=== PATIENT | male | born 1940 | race Caucasian/White ===

== ENCOUNTER 2017-09-12 10:27 | Emergency (ER) | payer MEDICARE, OTHER ==
[~2017-09-12] VITALS: Ht 185.4 cm; Wt 109.0 kg
[~2017-09-12 10:27] MED LIST: ASPI81TA96 PO; FLO0.4C PO; LISI40TA4 PO; LOPE-144 PO; METF-436 PO; ROSU5TAB PO; VITAMIN D3 PO
[2017-09-12 10:43] VITALS: BP 157/61
== END 2017-09-12 12:30 | disposition home or self-care (01) ==
LOC: ER 10:28
DX: S22.32XA Fracture of one rib, left side, initial encounter for closed fracture (principal); S13.9XXA Sprain of joints and ligaments of unspecified parts of neck, initial encounter; E11.9 Type 2 diabetes mellitus without complications; Z90.49 Acquired absence of other specified parts of digestive tract; Z95.0 Presence of cardiac pacemaker; Z79.82 Long term (current) use of aspirin; Z79.84 Long term (current) use of oral hypoglycemic drugs; Z79.899 Other long term (current) drug therapy; V89.2XXA Person injured in unspecified motor-vehicle accident, traffic, initial encounter; Y93.89 Activity, other specified; Y92.89 Other specified places as the place of occurrence of the external cause; Y99.8 Other external cause status
CPT/HCPCS: 71045; 99284

== ENCOUNTER 2017-12-11 09:05 | Day surgery (SDC) | payer MEDICARE ==
[2017-12-11] VITALS (8 sets, daily range): BP systolic 101–161; BP diastolic 55–100
[~2017-12-11] VITALS: Ht 182.9 cm; Wt 113.6 kg
[2017-12-11] MEDS ORDERED: diphenhydrAMINE 25mg capsule PO PRN (09:40)
[2017-12-11] MEDS ORDERED: sod bicarbonate 150mEq in D5W 1,150 ML IV ONE (09:40)
[2017-12-11] MEDS ORDERED: DET2T PO (09:44)
[2017-12-11 10:51] LABS: BASOPHILS # (AUTO) 0.1 X10'3 (0-0.2); BASOPHILS % (AUTO) 1.1 % (0-1); EOSINOPHILS # (AUTO) 0.3 X10'3 (0-0.9); EOSINOPHILS % (AUTO) 2.7 % (0-6); HEMATOCRIT 56.8 % (42.0-52.0); LYMPHOCYTES # (AUTO) 2.3 X10'3 (1.1-4.8); LYMPHOCYTES % (AUTO) 20.9 % (21-51); MEAN CORPUSCULAR HEMOGLOBIN 30.6 PG (27.0-31.0); MEAN CORPUSCULAR HGB CONC 32.5 % (33.0-36.5); MEAN CORPUSCULAR VOLUME 94.2 FL (78-98); MEAN PLATELET VOLUME 12.2 FL (7.4-10.4); MONOCYTES # (AUTO) 0.8 X10'3 (0-0.9); MONOCYTES % (AUTO) 7.6 % (2-12); NEUTROPHILS # (AUTO) 7.6 X10'3 (1.8-7.7); NEUTROPHILS % (AUTO) 67.7 % (42-75); PLATELET COUNT 141 X10'3 (140-440); RED BLOOD COUNT 6.03 X10'6 (4.70-6.10); RED CELL DISTRIBUTION WIDTH 16.4 % (11.5-14.5); WHITE BLOOD COUNT 11.2 X10'3 (4.5-11.0)
[2017-12-11 10:56] LABS: HEMOGLOBIN 18.5 g/dl (14.0-17.9)
[2017-12-11 11:00] LABS: ALBUMIN 3.8 G/DL (3.4-5.0); ANION GAP 10 (8-16); BLOOD UREA NITROGEN 21 MG/DL (7-18); BUN/CREATININE RATIO 19.3 (5.4-32.0); CALCIUM 9.2 MG/DL (8.5-10.1); CHLORIDE 107 MMOL/L (99-107); CREATININE 1.09 MG/DL (0.60-1.10); GLUCOSE 116 MG/DL (70-104); MAGNESIUM 2.1 MG/DL (1.5-2.4); POTASSIUM 4.5 MMOL/L (3.5-5.1); SODIUM 145 MMOL/L (135-145); TOTAL CARBON DIOXIDE 27.7 MMOL/L (24-32); eGFR 66 ML/MIN
[2017-12-11] MEDS ORDERED: iohexol 350 MG/ML 50ML vial IV ONE ×3 (11:15→13:19)
[2017-12-11] MEDS ORDERED: fentaNYL/PF 50MCG/1 ML 2ML syringe ONE (11:15)
[2017-12-11] MEDS ORDERED: midazolam 2 mg/2 ml injection ONE (11:15)
[2017-12-11] MEDS ORDERED: iohexol 350MG/ML 100ml bottle IV ONE ×4 (11:16→13:19)
[2017-12-11] MEDS ORDERED: LIDOcaine 1% (10mg/ml)w/preservative injection 20ml MDV ONE (11:17)
[2017-12-11] MEDS ORDERED: heparin 1,000 UNITS/NS 500ml 500 ML ONE (11:48)
[2017-12-11] MEDS ORDERED: heparin 1,000unit/ml 10ml vial 10 ML ONE ×2 (12:33→13:14)
[2017-12-11] MEDS ORDERED: hydrALAZINE 20mg/ml inj. IV ONE ×2 (13:07→13:40)
[2017-12-11] MEDS ORDERED: clopidogrel 300mg tablet ONE (13:46)
[2017-12-11] MEDS ORDERED: normal saline 1000ml 1,000 ML IV SCH (15:10)
[2017-12-11] MEDS ORDERED: ketorolac tromethamine 15mg/ml inj. IV ONE (15:25)
== END 2017-12-11 17:35 | disposition home or self-care (01) ==
LOC: SSTAY O 09:05
PROVIDERS: ATTEND Internal Medicine Cardiovascular Disease
DX: I25.810 Atherosclerosis of coronary artery bypass graft(s) without angina pectoris (principal); I70.213 Atherosclerosis of native arteries of extremities with intermittent claudication, bilateral legs; I25.2 Old myocardial infarction; I74.5 Embolism and thrombosis of iliac artery; I77.1 Stricture of artery; E11.9 Type 2 diabetes mellitus without complications; E78.5 Hyperlipidemia, unspecified; I10 Essential (primary) hypertension; F17.210 Nicotine dependence, cigarettes, uncomplicated; J43.9 Emphysema, unspecified; Z86.74 Personal history of sudden cardiac arrest; Z88.0 Allergy status to penicillin; Z72.89 Other problems related to lifestyle; Z85.46 Personal history of malignant neoplasm of prostate; Z92.21 Personal history of antineoplastic chemotherapy; Z95.0 Presence of cardiac pacemaker; Z95.1 Presence of aortocoronary bypass graft; Z95.5 Presence of coronary angioplasty implant and graft; Z79.82 Long term (current) use of aspirin; Z90.49 Acquired absence of other specified parts of digestive tract; Z79.899 Other long term (current) drug therapy; Z98.890 Other specified postprocedural states; Z82.49 Family history of ischemic heart disease and other diseases of the circulatory system; Z84.1 Family history of disorders of kidney and ureter
CPT/HCPCS: 36140; 36415; 37221; 37223; 75625; 75716; 80048; 82948; 83735; 85025; 85610; 93005; 93459; 99152; 99153; A6257; C1725; C1760; C1769; C1874; C1876; C1894; C9604; C9605; J0360; J1644; J1885; J2001; J2250; J3010; J7030; Q0163; Q9967; A4620

== ENCOUNTER 2018-01-01 07:43 | Day surgery (SDC) | payer MEDICARE ==
[2018-01-01] VITALS (8 sets, daily range): BP systolic 121–157; BP diastolic 53–79
[~2018-01-01] VITALS: Ht 182.9 cm; Wt 113.7 kg
[~2018-01-01 07:43] MED LIST changes: +DET2T PO; -FLO0.4C PO; -LOPE-144 PO; -METF-436 PO; -VITAMIN D3 PO
[2018-01-01] MEDS ORDERED: iohexol 350 MG/ML 50ML vial IV ONE (08:34)
[2018-01-01] MEDS ORDERED: midazolam 2 mg/2 ml injection ONE ×2 (08:34→09:55)
[2018-01-01] MEDS ORDERED: fentaNYL/PF 50MCG/1 ML 2ML syringe ONE (08:34)
[2018-01-01] MEDS ORDERED: LIDOcaine 1% (10mg/ml)w/preservative injection 20ml MDV ONE (08:34)
[2018-01-01] MEDS ORDERED: iohexol 350MG/ML 100ml bottle IV ONE ×2 (08:34→10:55)
[2018-01-01] MEDS ORDERED: heparin 1,000unit/ml 10ml vial 10 ML ONE (08:34)
[2018-01-01] MEDS ORDERED: sod bicarbonate 150mEq in D5W 1,150 ML IV ONE (08:35)
[2018-01-01] MEDS ORDERED: diphenhydrAMINE 25mg capsule PO PRN (08:35)
[2018-01-01] MEDS ORDERED: normal saline 1000ml 1,000 ML IV SCH (08:35)
[2018-01-01] MEDS ORDERED: CLOP75TA33 PO (08:38)
[2018-01-01] MEDS ORDERED: CARV-50 PO (08:38)
[2018-01-01 09:05] LABS: BASOPHILS # (AUTO) 0.1 X10'3 (0-0.2); BASOPHILS % (AUTO) 0.4 % (0-1); EOSINOPHILS # (AUTO) 0.3 X10'3 (0-0.9); EOSINOPHILS % (AUTO) 2.6 % (0-6); LYMPHOCYTES # (AUTO) 2.3 X10'3 (1.1-4.8); LYMPHOCYTES % (AUTO) 17.8 % (21-51); MEAN CORPUSCULAR HEMOGLOBIN 30.6 PG (27.0-31.0); MEAN CORPUSCULAR HGB CONC 32.3 % (33.0-36.5); MEAN CORPUSCULAR VOLUME 94.8 FL (78-98); MEAN PLATELET VOLUME 10.9 FL (7.4-10.4); MONOCYTES # (AUTO) 0.9 X10'3 (0-0.9); MONOCYTES % (AUTO) 7.3 % (2-12); NEUTROPHILS # (AUTO) 9.2 X10'3 (1.8-7.7); NEUTROPHILS % (AUTO) 71.9 % (42-75); PRE OP HEMOGLOBIN 17.4 g/dL (14.0-17.9); PRE OP PLATELET COUNT 168 X10'3 (140-440)
[2018-01-01 09:10] LABS: ALBUMIN 4.1 G/DL (3.4-5.0); ANION GAP 6 (8-16); BLOOD UREA NITROGEN 22 MG/DL (7-18); BUN/CREATININE RATIO 14.7 (5.4-32.0); CALCIUM 9.2 MG/DL (8.5-10.1); CHLORIDE 107 MMOL/L (99-107); GLUCOSE 120 MG/DL (70-104); POTASSIUM 4.6 MMOL/L (3.5-5.1); SODIUM 145 MMOL/L (135-145); TOTAL CARBON DIOXIDE 31.8 MMOL/L (24-32); eGFR 45 ML/MIN
[2018-01-01 09:21] LABS: INR 0.9 INR; PROTHROMBIN TIME 9.6 SECONDS (9.0-12.0)
[2018-01-01] MEDS ORDERED: nitroGLYCERIN-Tridil 50MG/D5W 250 ML IV ONE (10:36)
[2018-01-01] MEDS ORDERED: hydrALAZINE 20mg/ml inj. IV ONE (11:22)
== END 2018-01-01 15:05 | disposition home or self-care (01) ==
LOC: SSTAY O 07:43
PROVIDERS: ATTEND Internal Medicine Cardiovascular Disease
DX: I70.212 Atherosclerosis of native arteries of extremities with intermittent claudication, left leg (principal); I74.5 Embolism and thrombosis of iliac artery; I25.118 Atherosclerotic heart disease of native coronary artery with other forms of angina pectoris; I25.5 Ischemic cardiomyopathy; I47.2 Ventricular tachycardia; I44.2 Atrioventricular block, complete; I10 Essential (primary) hypertension; E78.5 Hyperlipidemia, unspecified; E11.9 Type 2 diabetes mellitus without complications; G47.33 Obstructive sleep apnea (adult) (pediatric); F17.210 Nicotine dependence, cigarettes, uncomplicated; J43.9 Emphysema, unspecified; Z95.810 Presence of automatic (implantable) cardiac defibrillator; Z95.1 Presence of aortocoronary bypass graft; Z88.0 Allergy status to penicillin; Z79.82 Long term (current) use of aspirin; Z95.828 Presence of other vascular implants and grafts; Z90.49 Acquired absence of other specified parts of digestive tract; Z85.46 Personal history of malignant neoplasm of prostate; Z92.3 Personal history of irradiation; Z86.74 Personal history of sudden cardiac arrest; Z95.5 Presence of coronary angioplasty implant and graft; Z87.09 Personal history of other diseases of the respiratory system; Z72.89 Other problems related to lifestyle; Z79.4 Long term (current) use of insulin; Z98.890 Other specified postprocedural states; Z79.899 Other long term (current) drug therapy; Z82.49 Family history of ischemic heart disease and other diseases of the circulatory system; Z84.1 Family history of disorders of kidney and ureter
CPT/HCPCS: 36415; 37224; 80048; 82948; 83735; 85025; 85610; 93005; 99152; 99153; J0360; J1644; J2001; J2250; J3010; J7030; Q0163; Q9967; 75630; A4620; C1760; C1769; C1894; J3490

== ENCOUNTER 2018-01-15 08:54 | Day surgery (SDC) | payer MEDICARE ==
[~2018-01-15] VITALS: Ht 195.6 cm; Wt 113.9 kg
[2018-01-15] VITALS (9 sets, daily range): BP systolic 94–157; BP diastolic 52–85
[~2018-01-15 08:54] MED LIST changes: +CARV-50 PO; +CLOP75TA33 PO
[2018-01-15] MEDS ORDERED: sod bicarbonate 150mEq in D5W 1,150 ML IV ONE (09:30)
[2018-01-15] MEDS ORDERED: diphenhydrAMINE 25mg capsule PO PRN (09:30)
[2018-01-15 09:57] LABS: BASOPHILS % (AUTO) 0.1 % (0-1); EOSINOPHILS # (AUTO) 0.3 X10'3 (0-0.9); EOSINOPHILS % (AUTO) 3.1 % (0-6); LYMPHOCYTES # (AUTO) 2.1 X10'3 (1.1-4.8); MEAN CORPUSCULAR HEMOGLOBIN 30.9 PG (27.0-31.0); MEAN CORPUSCULAR HGB CONC 32.7 % (33.0-36.5); MEAN CORPUSCULAR VOLUME 94.4 FL (78-98); MEAN PLATELET VOLUME 10.8 FL (7.4-10.4); MONOCYTES # (AUTO) 0.4 X10'3 (0-0.9); MONOCYTES % (AUTO) 3.8 % (2-12); NEUTROPHILS # (AUTO) 8.4 X10'3 (1.8-7.7); PRE OP HEMATOCRIT 47.1 % (42.0-52.0); PRE OP HEMOGLOBIN 15.4 g/dL (14.0-17.9); PRE OP PLATELET COUNT 143 X10'3 (140-440); RED BLOOD COUNT 4.99 X10'6 (4.70-6.10); RED CELL DISTRIBUTION WIDTH 15.2 % (11.5-14.5)
[2018-01-15 10:07] LABS: PROTHROMBIN TIME 10.4 SECONDS (9.0-12.0)
[2018-01-15 10:10] LABS: ALBUMIN 3.2 G/DL (3.4-5.0); ANION GAP 5 (8-16); BLOOD UREA NITROGEN 17 MG/DL (7-18); CALCIUM 8.5 MG/DL (8.5-10.1); CHLORIDE 108 MMOL/L (99-107); GLUCOSE 120 MG/DL (70-104); POTASSIUM 4.4 MMOL/L (3.5-5.1); SODIUM 142 MMOL/L (135-145); TOTAL CARBON DIOXIDE 28.7 MMOL/L (24-32); eGFR 72 ML/MIN
[2018-01-15] MEDS ORDERED: LIDOcaine 1% (10mg/ml)w/preservative injection 20ml MDV ONE (11:26)
[2018-01-15] MEDS ORDERED: fentaNYL/PF 50MCG/1 ML 2ML syringe ONE (11:26)
[2018-01-15] MEDS ORDERED: heparin 1,000unit/ml 10ml vial 0 ML ONE (11:26)
[2018-01-15] MEDS ORDERED: iohexol 350MG/ML 100ml bottle IV ONE ×2 (11:26→12:35)
[2018-01-15] MEDS ORDERED: midazolam 2 mg/2 ml injection ONE (11:26)
[2018-01-15] MEDS ORDERED: nitroGLYCERIN-Tridil 50MG/D5W 0 ML IV ONE (12:28)
[2018-01-15] MEDS ORDERED: verapamil 2.5 mg/ml inj IV ONE (12:28)
[2018-01-15] MEDS ORDERED: HYDROcodone/acetaminophen 10/325mg tab PO ONE (16:05)
[2018-01-15] MEDS ORDERED: HYDROcodone/acetaminophen 10/325mg tab PO PRN (16:15)
[2018-01-15] MEDS ORDERED: HYDROcodone/acetaminophen 5mg/325mg tablet PO PRN (16:15)
== END 2018-01-15 18:00 | disposition home or self-care (01) ==
LOC: SSTAY O 08:54
PROVIDERS: ATTEND Internal Medicine Cardiovascular Disease
DX: I70.213 Atherosclerosis of native arteries of extremities with intermittent claudication, bilateral legs (principal); I44.7 Left bundle-branch block, unspecified; I25.810 Atherosclerosis of coronary artery bypass graft(s) without angina pectoris; I25.2 Old myocardial infarction; I10 Essential (primary) hypertension; E78.5 Hyperlipidemia, unspecified; E11.9 Type 2 diabetes mellitus without complications; I25.5 Ischemic cardiomyopathy; I47.2 Ventricular tachycardia; I44.2 Atrioventricular block, complete; J44.9 Chronic obstructive pulmonary disease, unspecified; F17.210 Nicotine dependence, cigarettes, uncomplicated; N40.0 Benign prostatic hyperplasia without lower urinary tract symptoms; G47.33 Obstructive sleep apnea (adult) (pediatric); Z86.74 Personal history of sudden cardiac arrest; Z85.46 Personal history of malignant neoplasm of prostate; Z92.3 Personal history of irradiation; Z95.5 Presence of coronary angioplasty implant and graft; Z79.4 Long term (current) use of insulin; Z88.0 Allergy status to penicillin; Z95.810 Presence of automatic (implantable) cardiac defibrillator; Z79.82 Long term (current) use of aspirin; Z95.1 Presence of aortocoronary bypass graft; Z90.49 Acquired absence of other specified parts of digestive tract; Z79.899 Other long term (current) drug therapy; Z98.890 Other specified postprocedural states; Z82.49 Family history of ischemic heart disease and other diseases of the circulatory system; Z84.1 Family history of disorders of kidney and ureter
CPT/HCPCS: 36245; 36415; 80048; 83735; 85025; 85610; 93005; 99152; 99153; C1760; J1644; J2001; J2250; J3010; Q0163; Q9967; 36140; A4620; C1725; C1769; C1894; J3490

== ENCOUNTER 2018-09-30 07:25 | Emergency (ER) | payer MEDICARE ==
[~2018-09-30] VITALS: Ht 185.4 cm; Wt 122.0 kg
[2018-09-30 09:44] VITALS: BP 179/85
[2018-09-30] MEDS ORDERED: TRAM50TA2 PO (10:04)
== END 2018-09-30 10:18 | disposition home or self-care (01) ==
LOC: ER 07:27
DX: S50.01XA Contusion of right elbow, initial encounter (principal); R07.81 Pleurodynia; R60.0 Localized edema; E11.9 Type 2 diabetes mellitus without complications; Z88.0 Allergy status to penicillin; Z79.82 Long term (current) use of aspirin; Z79.899 Other long term (current) drug therapy; Z90.49 Acquired absence of other specified parts of digestive tract; Z95.0 Presence of cardiac pacemaker; Z95.9 Presence of cardiac and vascular implant and graft, unspecified; W10.8XXA Fall (on) (from) other stairs and steps, initial encounter; Y93.89 Activity, other specified; Y92.89 Other specified places as the place of occurrence of the external cause; Y99.8 Other external cause status
CPT/HCPCS: 71045; 71100; 73080; 99284

== ENCOUNTER 2019-07-11 08:12 | Outpatient (CLI) | payer MEDICARE | END 2019-07-11 23:59 | disposition home or self-care (01) | LOC: VAS 08:12 | PROVIDERS: ATTEND Surgery | DX: I70.201 Unspecified atherosclerosis of native arteries of extremities, right leg (principal) | CPT/HCPCS: 93922; 93926; 93971 ==

== ENCOUNTER 2019-07-15 09:30 | Outpatient (CLI) | payer MEDICARE | END 2019-07-15 10:46 | disposition home or self-care (01) | LOC: WOUND CARE 09:30 → EDSTATUS 09:40 → WOUND CARE 10:46 | PROVIDERS: ATTEND Nurse Practitioner | DX: I70.235 Atherosclerosis of native arteries of right leg with ulceration of other part of foot (principal); L97.811 Non-pressure chronic ulcer of other part of right lower leg limited to breakdown of skin; S91.101A Unspecified open wound of right great toe without damage to nail, initial encounter; I10 Essential (primary) hypertension; E78.5 Hyperlipidemia, unspecified; I25.10 Atherosclerotic heart disease of native coronary artery without angina pectoris; F17.200 Nicotine dependence, unspecified, uncomplicated; Z95.1 Presence of aortocoronary bypass graft; X58.XXXA Exposure to other specified factors, initial encounter; Y93.89 Activity, other specified; Y92.89 Other specified places as the place of occurrence of the external cause; Y99.8 Other external cause status | CPT/HCPCS: G0463 ==

== ENCOUNTER 2019-07-22 08:42 | Day surgery (SDC) | payer MEDICARE ==
[2019-07-22] MEDS ORDERED: LIDOcaine 2% 5ml jelly ONE ×2 (09:00)
== END 2019-07-22 09:38 | disposition home or self-care (01) ==
LOC: WOUND CARE 08:42
PROVIDERS: ATTEND Nurse Practitioner
DX: I70.235 Atherosclerosis of native arteries of right leg with ulceration of other part of foot (principal); L97.811 Non-pressure chronic ulcer of other part of right lower leg limited to breakdown of skin; S91.101D Unspecified open wound of right great toe without damage to nail, subsequent encounter; I10 Essential (primary) hypertension; E78.5 Hyperlipidemia, unspecified; I25.10 Atherosclerotic heart disease of native coronary artery without angina pectoris; F17.200 Nicotine dependence, unspecified, uncomplicated; Z95.1 Presence of aortocoronary bypass graft; X58.XXXD Exposure to other specified factors, subsequent encounter
CPT/HCPCS: 82948; 97597

== ENCOUNTER 2019-07-24 08:06 | Outpatient (CLI) | payer MEDICARE ==
[2019-07-24] MEDS ORDERED: iohexol 350MG/ML 100ml bottle IV ONE (09:02)
[2019-07-24] MEDS ORDERED: iohexol 350 MG/ML 50ML vial IV ONE (09:03)
[2019-07-24 09:08] LABS: BASOPHILS # (AUTO) 0.1 X10'3 (0-0.2); BASOPHILS % (AUTO) 0.9 % (0-1); EOSINOPHILS # (AUTO) 0.1 X10'3 (0-0.9); EOSINOPHILS % (AUTO) 0.6 % (0-6); HEMATOCRIT 54.2 % (42.0-52.0); HEMOGLOBIN 17.6 g/dl (14.0-17.9); LYMPHOCYTES # (AUTO) 1.3 X10'3 (1.1-4.8); LYMPHOCYTES % (AUTO) 10.9 % (21-51); MEAN CORPUSCULAR HEMOGLOBIN 30.8 PG (27.0-31.0); MEAN CORPUSCULAR HGB CONC 32.5 g/dL (33.0-36.5); MEAN CORPUSCULAR VOLUME 94.7 FL (78-98); MONOCYTES # (AUTO) 0.9 X10'3 (0-0.9); MONOCYTES % (AUTO) 6.9 % (2-12); NEUTROPHILS % (AUTO) 80.7 % (42-75); PLATELET COUNT 100 X10'3 (140-440); RED BLOOD COUNT 5.72 X10'6 (4.70-6.10); RED CELL DISTRIBUTION WIDTH 16.3 % (11.5-14.5); WHITE BLOOD COUNT 12.3 X10'3 (4.5-11.0)
[2019-07-24 09:23] LABS: ALANINE AMINOTRANSFERASE 16 U/L (12-78); ALBUMIN 3.2 G/DL (3.4-5.0); ALBUMIN/GLOBULIN RATIO 0.9 (1.1-1.5); ALKALINE PHOSPHATASE 72 IU/L (46-116); ANION GAP 2 (8-16); ASPARTATE AMINO TRANSFERASE 18 U/L (10-37); BILIRUBIN,TOTAL 0.8 MG/DL (0.1-1.0); BLOOD UREA NITROGEN 13 MG/DL (7-18); BUN/CREATININE RATIO 12.7 (5.4-32.0); CALCIUM 8.9 MG/DL (8.5-10.1); CHLORIDE 108 MMOL/L (99-107); CREATININE 1.02 MG/DL (0.60-1.10); GLUCOSE 125 MG/DL (70-104); POTASSIUM 4.5 MMOL/L (3.5-5.1); SODIUM 145 MMOL/L (135-145); TOTAL CARBON DIOXIDE 35.1 MMOL/L (24-32); TOTAL PROTEIN 6.8 G/DL (6.4-8.2); eGFR 70 ML/MIN
[2019-07-24 09:26] LABS: LARGE PLATELETS FEW; PLATELET ESTIMATE DECREASED
[2019-07-24 09:30] LABS: HEMOGLOBIN A1C 6.3 % (4.5-6.2)
== END 2019-07-24 23:59 | disposition home or self-care (01) ==
LOC: 64 CT 08:06
PROVIDERS: ATTEND Nurse Practitioner
DX: Z01.812 Encounter for preprocedural laboratory examination (principal); I74.3 Embolism and thrombosis of arteries of the lower extremities; I48.91 Unspecified atrial fibrillation; Z79.01 Long term (current) use of anticoagulants; F17.210 Nicotine dependence, cigarettes, uncomplicated; Z95.0 Presence of cardiac pacemaker; I25.10 Atherosclerotic heart disease of native coronary artery without angina pectoris; I70.8 Atherosclerosis of other arteries; E78.5 Hyperlipidemia, unspecified; E11.51 Type 2 diabetes mellitus with diabetic peripheral angiopathy without gangrene
CPT/HCPCS: 36415; 80053; 83036; 85025; Q9967

== ENCOUNTER 2019-07-26 16:23 | Inpatient (IN) | payer MEDICARE ==
[~2019-07-26] VITALS: Ht 185.4 cm; Wt 115.0 kg
[~2019-07-26 16:23] MED LIST changes: -AMIO200T61 PO; -ASCO500C15 PO; -ASPI-1130 PO; -CARV6.253 PO; -FURO40TA4 PO; -LISI2.5T2 PO; -MULT-1085 PO; -ROSU40TA22 PO; -ZOLP5TAB8 PO; -iohexol 350 MG/ML 50ML vial IV ONE; -iohexol 350MG/ML 100ml bottle IV ONE
[2019-07-26] MEDS ORDERED: heparin 25,000 UNIT/250ml bag 250 ML IV SCH ×2 (17:59→19:06)
[2019-07-26] MEDS ORDERED: heparin 10,000 units/1 ML INJ IV ONE ×4 (18:00→20:30)
[2019-07-26 18:04] LABS: BASOPHILS # (AUTO) 0.2 X10'3 (0-0.2); BASOPHILS % (AUTO) 1.9 % (0-1); EOSINOPHILS # (AUTO) 0.1 X10'3 (0-0.9); EOSINOPHILS % (AUTO) 1.2 % (0-6); HEMATOCRIT 53.7 % (42.0-52.0); HEMOGLOBIN 17.3 g/dl (14.0-17.9); LYMPHOCYTES # (AUTO) 1.6 X10'3 (1.1-4.8); LYMPHOCYTES % (AUTO) 13.6 % (21-51); MEAN CORPUSCULAR HEMOGLOBIN 30.9 PG (27.0-31.0); MEAN CORPUSCULAR HGB CONC 32.3 g/dL (33.0-36.5); MEAN CORPUSCULAR VOLUME 95.6 FL (78-98); MEAN PLATELET VOLUME 10.9 FL (7.4-10.4); MONOCYTES # (AUTO) 1.3 X10'3 (0-0.9); MONOCYTES % (AUTO) 10.8 % (2-12); NEUTROPHILS # (AUTO) 8.6 X10'3 (1.8-7.7); NEUTROPHILS % (AUTO) 72.5 % (42-75); PLATELET COUNT 115 X10'3 (140-440); RED BLOOD COUNT 5.61 X10'6 (4.70-6.10); WHITE BLOOD COUNT 11.8 X10'3 (4.5-11.0)
[2019-07-26 18:14] LABS: PARTIAL THROMBOPLASTIN TIME 30 SECONDS (22-32)
[2019-07-26 18:15] LABS: ALANINE AMINOTRANSFERASE 23 U/L (12-78); ALBUMIN 3.2 G/DL (3.4-5.0); ANION GAP 2 (8-16); ASPARTATE AMINO TRANSFERASE 18 U/L (10-37); BILIRUBIN,TOTAL 0.4 MG/DL (0.1-1.0); BLOOD UREA NITROGEN 15 MG/DL (7-18); BUN/CREATININE RATIO 13.6 (5.4-32.0); CALCIUM 8.9 MG/DL (8.5-10.1); CHLORIDE 108 MMOL/L (99-107); GLUCOSE 105 MG/DL (70-104); POTASSIUM 4.3 MMOL/L (3.5-5.1); SODIUM 145 MMOL/L (135-145); TOTAL CARBON DIOXIDE 34.9 MMOL/L (24-32); TOTAL PROTEIN 6.4 G/DL (6.4-8.2); eGFR 65 ML/MIN
[2019-07-26 18:25] LABS: ALKALINE PHOSPHATASE 77 IU/L (46-116)
[2019-07-26 18:36] LABS: LARGE PLATELETS FEW; PLATELET ESTIMATE DECREASED
--- NOTE | 2019-07-26 18:39 | NUR ---
attempting insertion of IV x 2.
[2019-07-26] MEDS ORDERED: AMIO200T61 PO (18:48)
[2019-07-26] MEDS ORDERED: FURO40TA4 PO (18:48)
[2019-07-26] MEDS ORDERED: CARV6.253 PO (18:48)
[2019-07-26] MEDS ORDERED: ZOLP5TAB8 PO (18:48)
[2019-07-26] MEDS ORDERED: LISI2.5T2 PO (18:48)
[2019-07-26] MEDS ORDERED: ROSU40TA22 PO (18:48)
[2019-07-26] MEDS ORDERED: heparin 10,000 units/1 ML INJ IV PRN (19:10)
--- NOTE | 2019-07-26 19:21 | NUR ---
22G iv INSERTED INTO RIGHT FOREARM. HEPARIN GTT STARTED AT 1925.
[2019-07-26] MEDS ORDERED: ASPI-1130 PO (19:38)
[2019-07-26] MEDS ORDERED: ASCO500C15 PO (19:38)
[2019-07-26] MEDS ORDERED: MULT-1085 PO (19:38)
[2019-07-26] MEDS ORDERED: zolpidem 5mg tablet PO PRN (20:25)
[2019-07-26] MEDS ORDERED: potassium Cl 20 mEq SR tablet PO PRN ×2 (20:30)
[2019-07-26] MEDS ORDERED: ipratropium/albuterol 3ml nebule NEB PRN (20:30)
[2019-07-26] MEDS ORDERED: ondansetron/PF 4mg/2ml inj IV PRN (20:30)
[2019-07-26] MEDS ORDERED: dextrose 50%-water 50ml dispensing syringe IV PRN ×2 (20:30)
[2019-07-26] MEDS ORDERED: glucagon, human recombinant 1mg kit SUBCUT PRN (20:30)
[2019-07-26] MEDS ORDERED: acetaminophen 325mg tablet PO PRN (20:30)
[2019-07-26] MEDS ORDERED: potassium CL 10mEq/100ml bag 100 ML IV PRN ×2 (20:30)
[2019-07-26] MEDS ORDERED: insulin Lispro (HumaLOG) vial - multi-dose SQ SCH (20:30)
[2019-07-26] MEDS ORDERED: dextrose ORAL solution 15 GM/59 ML bottle PO PRN ×2 (20:30)
[2019-07-26] MEDS ORDERED: mag hydrox/Alum hydrox/simeth 30ml oral suspension PO PRN (20:30)
[2019-07-26] MEDS ORDERED: MESSAGE TO PHARMACY PO ONE (20:30)
[2019-07-26] MEDS ORDERED: magnesium hydroxide 30ml (MOM) UD suspension PO PRN (20:30)
[2019-07-26] MEDS ORDERED: magnesium 4gm in 100ml NS 100 ML IV PRN (20:30)
[2019-07-26] MEDS ORDERED: magnesium 2GM in 50ml NS 50 ML IV PRN (20:30)
--- NOTE | 2019-07-26 20:49 | NUR ---
Break relief for Primary Nurse. Pt is awaiting admission bed assignment.
[2019-07-26] MEDS: insulin glargine (Lantus) pen - multi-dose SQ SCH (21:00)
[2019-07-26] MEDS ORDERED: Melatonin 3mg tablet PO PRN (23:20)
[2019-07-27] VITALS (7 sets, daily range): BP systolic 100–157; BP diastolic 52–82
[2019-07-27 01:04] LABS: BASOPHILS # (AUTO) 0.1 X10'3 (0-0.2); EOSINOPHILS # (AUTO) 0.2 X10'3 (0-0.9); EOSINOPHILS % (AUTO) 1.5 % (0-6); HEMOGLOBIN 16.9 g/dl (14.0-17.9); LYMPHOCYTES # (AUTO) 1.6 X10'3 (1.1-4.8); MEAN CORPUSCULAR HGB CONC 33.1 g/dL (33.0-36.5); MONOCYTES # (AUTO) 1.1 X10'3 (0-0.9)
[2019-07-27 01:05] LABS: BASOPHILS % (AUTO) 1.2 % (0-1); MEAN CORPUSCULAR HEMOGLOBIN 31.4 PG (27.0-31.0); MEAN CORPUSCULAR VOLUME 94.8 FL (78-98); MEAN PLATELET VOLUME 10.9 FL (7.4-10.4); MONOCYTES % (AUTO) 9.8 % (2-12); NEUTROPHILS # (AUTO) 7.9 X10'3 (1.8-7.7); NEUTROPHILS % (AUTO) 72.5 % (42-75); PLATELET COUNT 116 X10'3 (140-440); RED BLOOD COUNT 5.38 X10'6 (4.70-6.10); RED CELL DISTRIBUTION WIDTH 15.7 % (11.5-14.5); WHITE BLOOD COUNT 10.9 X10'3 (4.5-11.0)
[2019-07-27 01:15] LABS: ALANINE AMINOTRANSFERASE 17 U/L (12-78); ALKALINE PHOSPHATASE 67 IU/L (46-116); ANION GAP 2 (8-16); ASPARTATE AMINO TRANSFERASE 18 U/L (10-37); BILIRUBIN,TOTAL 0.5 MG/DL (0.1-1.0); BLOOD UREA NITROGEN 13 MG/DL (7-18); CALCIUM 8.7 MG/DL (8.5-10.1); CHLORIDE 108 MMOL/L (99-107); CHOL/HDL RATIO 2.2 (0.00-4.99); CHOLESTEROL 84 MG/DL (0-200); CREATININE 0.93 MG/DL (0.60-1.10); GLUCOSE 126 MG/DL (70-104); HDL CHOLESTEROL 38 MG/DL (35-60); LDL CHOLESTEROL 33 MG/DL (50-100); SODIUM 145 MMOL/L (135-145); TOTAL PROTEIN 6.1 G/DL (6.4-8.2); TRIGLYCERIDES 50 MG/DL (20-135); eGFR 78 ML/MIN
[2019-07-27] MEDS ORDERED: heparin 10,000 units/1 ML INJ IV PRN (05:00)
[2019-07-27] MEDS: heparin 25,000 UNIT/250ml bag 250 ML IV SCH ×4 (05:00→15:20)
--- NOTE | 2019-07-27 06:25 | NUR ---
Patient in room PCU 3025. I have received report from STEFF Mcintosh and had the opportunity to ask questions and assume patient care. Patient awake in bed and in no acute distress.
--- NOTE | 2019-07-27 06:40 | NUR ---
Problems reprioritized. Patient report given, questions answered & plan of care reviewed with STEFF Roberto. Patient stable at shift change
[2019-07-27] MEDS: K and/or MAG REPLACEMENT MC SCH ×2 (08:00→20:00)
[2019-07-27] MEDS: furosemide 40mg tablet PO SCH (08:37)
[2019-07-27] MEDS: multivitamins, therapeutics tablet PO SCH (08:38)
[2019-07-27] MEDS: atorvastatin 20mg tablet PO SCH (08:38)
[2019-07-27] MEDS: amiodarone 200mg tablet PO SCH (08:39)
[2019-07-27] MEDS: ascorbic acid 500mg tablet PO SCH (08:39)
[2019-07-27] MEDS: lisinopril 2.5mg tablet PO SCH (08:39)
[2019-07-27] MEDS: carvedilol 6.25mg tablet PO SCH ×2 (08:40→20:35)
--- NOTE | 2019-07-27 18:00 | NUR ---
Patient in room PCU 3025. I have received report from STEFF Roberto and had the opportunity to ask questions and assume patient care.
--- NOTE | 2019-07-27 18:44 | NUR ---
Problems reprioritized. Patient report given, questions answered & plan of care reviewed with STEFF Wasserman. Patient stable at transfer of care.
[2019-07-27] MEDS: insulin glargine (Lantus) pen - multi-dose SQ SCH (21:00)
[2019-07-28] MEDS: heparin 25,000 UNIT/250ml bag 250 ML IV SCH ×2 (00:45→08:41)
[2019-07-28 02:00] VITALS: BP 134/58
--- NOTE | 2019-07-28 06:17 | NUR ---
Problems reprioritized. Patient report given, questions answered & plan of care reviewed with STEFF Roberto.
--- NOTE | 2019-07-28 06:20 | NUR ---
Patient in room PCU 3025. I have received report from STEFF Wasserman and had the opportunity to ask questions and assume patient care. Patient asleep in bed and in no acute distress.
[2019-07-28 07:00] VITALS: BP 149/56
[2019-07-28] MEDS: K and/or MAG REPLACEMENT MC SCH ×2 (08:00→20:00)
[2019-07-28 08:11] LABS: ALANINE AMINOTRANSFERASE 17 U/L (12-78); ALBUMIN 3.1 G/DL (3.4-5.0); ALKALINE PHOSPHATASE 61 IU/L (46-116); ANION GAP 0 (8-16); ASPARTATE AMINO TRANSFERASE 18 U/L (10-37); BILIRUBIN,TOTAL 0.5 MG/DL (0.1-1.0); BLOOD UREA NITROGEN 14 MG/DL (7-18); BUN/CREATININE RATIO 13.7 (5.4-32.0); CALCIUM 8.6 MG/DL (8.5-10.1); CHLORIDE 108 MMOL/L (99-107); CREATININE 1.02 MG/DL (0.60-1.10); GLUCOSE 114 MG/DL (70-104); MAGNESIUM 2.1 MG/DL (1.5-2.4); SODIUM 145 MMOL/L (135-145); TOTAL CARBON DIOXIDE 36.7 MMOL/L (24-32); TOTAL PROTEIN 6.1 G/DL (6.4-8.2); eGFR 70 ML/MIN
[2019-07-28] MEDS: amiodarone 200mg tablet PO SCH (08:32)
[2019-07-28] MEDS: ascorbic acid 500mg tablet PO SCH (08:33)
[2019-07-28] MEDS: carvedilol 6.25mg tablet PO SCH ×2 (08:33→19:55)
[2019-07-28] MEDS: atorvastatin 20mg tablet PO SCH (08:34)
[2019-07-28] MEDS: multivitamins, therapeutics tablet PO SCH (08:34)
[2019-07-28] MEDS: lisinopril 2.5mg tablet PO SCH (08:34)
[2019-07-28] MEDS: furosemide 40mg tablet PO SCH (08:34)
[2019-07-28 11:00] VITALS: BP 144/74
[2019-07-28 15:00] VITALS: BP 139/56
--- NOTE | 2019-07-28 18:42 | NUR ---
Problems reprioritized. Patient report given, questions answered & plan of care reviewed with STEFF Sood. Patient stable at transfer of care.
--- NOTE | 2019-07-28 18:43 | NUR ---
Patient in room U 6133e. I have received report from STEFF SEO and had the opportunity to ask questions and assume patient care.
[2019-07-28 19:00] VITALS: BP 141/54
[2019-07-28] MEDS: insulin glargine (Lantus) pen - multi-dose SQ SCH (21:00)
--- NOTE | 2019-07-28 21:30 | NUR ---
PTT 48 AND WITHIN THERAPEUTIC RANGE. WILL CONTINUE TO INFUSE HEPARIN AT 1300 UNITS/HR PER PROTOCOL. NEXT PTT 0317. WILL CONTINUE TO MONITOR CLOSELY.
[2019-07-28 23:00] VITALS: BP 126/54
[2019-07-29] VITALS (11 sets, daily range): BP systolic 102–162; BP diastolic 42–77
[2019-07-29 04:06] LABS: ALANINE AMINOTRANSFERASE 19 U/L (12-78); ALBUMIN 3.5 G/DL (3.4-5.0); ALKALINE PHOSPHATASE 69 IU/L (46-116); ANION GAP 2 (8-16); ASPARTATE AMINO TRANSFERASE 22 U/L (10-37); BILIRUBIN,TOTAL 0.8 MG/DL (0.1-1.0); BLOOD UREA NITROGEN 15 MG/DL (7-18); BUN/CREATININE RATIO 12.5 (5.4-32.0); CHLORIDE 105 MMOL/L (99-107); GLUCOSE 118 MG/DL (70-104); MAGNESIUM 2.2 MG/DL (1.5-2.4); POTASSIUM 4.2 MMOL/L (3.5-5.1); SODIUM 146 MMOL/L (135-145); TOTAL CARBON DIOXIDE 38.7 MMOL/L (24-32); TOTAL PROTEIN 6.9 G/DL (6.4-8.2); eGFR 58 ML/MIN
--- NOTE | 2019-07-29 04:30 | NUR ---
DVT PTT ELEVATED 77. HEPARIN GTT RATE CHANGED FROM 1300 UNITS/HR TO 1200 UNITS/HR. NEXT DVT PTT DUE AT 1015. WILL CONTINUE TO MONITOR CLOSELY.
--- NOTE | 2019-07-29 06:05 | NUR ---
Patient in room PCU 3025. I have received report from STEFF Sood and had the opportunity to ask questions and assume patient care.
--- NOTE | 2019-07-29 06:53 | NUR ---
Problems reprioritized. Patient report given, questions answered & plan of care reviewed with STEFF RODRIGUEZ.
[2019-07-29] MEDS: heparin 25,000 UNIT/250ml bag 250 ML IV SCH (07:41)
[2019-07-29] MEDS: multivitamins, therapeutics tablet PO SCH (07:45)
[2019-07-29] MEDS: atorvastatin 20mg tablet PO SCH (07:45)
[2019-07-29] MEDS: ascorbic acid 500mg tablet PO SCH (07:45)
[2019-07-29] MEDS: amiodarone 200mg tablet PO SCH (07:46)
[2019-07-29] MEDS: furosemide 40mg tablet PO SCH (07:48)
[2019-07-29] MEDS: carvedilol 6.25mg tablet PO SCH ×2 (07:48→21:19)
[2019-07-29] MEDS: lisinopril 2.5mg tablet PO SCH (07:49)
[2019-07-29] MEDS: K and/or MAG REPLACEMENT MC SCH ×2 (08:00→20:00)
[2019-07-29] MEDS ORDERED: aspirin 81mg tablet.DR PO SCH (08:00)
[2019-07-29] MEDS ORDERED: fentaNYL/PF 50MCG/1 ML 2ML syringe ONE (08:23)
[2019-07-29] MEDS ORDERED: iohexol 300mg/ml 100ml inj. ONE (08:23)
[2019-07-29] MEDS ORDERED: heparin 1,000 UNITS/NS 500ml 500 ML ONE (08:23)
[2019-07-29] MEDS ORDERED: LIDOcaine 1%/PF 5ML 10 MG/ML VIAL ONE ×2 (08:23→09:39)
[2019-07-29] MEDS ORDERED: midazolam 2 mg/2 ml injection ONE (08:23)
[2019-07-29] MEDS: normal saline 1000ml 1,000 ML IV SCH ×2 (10:04→19:41)
--- NOTE | 2019-07-29 14:00 | NUR ---
Noted that patient was sitting up in a chair at bedside. Patient was desating and found to have oxygen off. Patient had removed it and his SAO2 decreased down to mid 70s. NC was replaced and his oxygen returned to 93-94%. At this time Dr. Colin was notified and she ordered a chest xray and also an echo because patient reports that he does not use oxygen at home.
--- NOTE | 2019-07-29 14:20 | NUR ---
PAGER ID: [phone] MESSAGE: DR. NICHOLS, [id number], HE THINKS HE IS BEING DISCHARGED AND IS ANXIOUS TO LEAVE. IF HE IS NOT BEING DISCHARGED, CAN WE PLEASE INFORM HIM WHY? ALSO, HE WILL QUALIFY FOR HOME 02 AT THIS TIME. WAS JUST 76% ON RA, 4L/NC 88%. BRONSON [id number].
--- NOTE | 2019-07-29 14:33 | NUR ---
O2 Sat at rest on room air:76__% If below 89%: Recovery O2 Sat at rest on __4_LPM:_93__%:___% via____NC (mask/nasal cannula, etc..) No further documentation is necessary. If O2 Sat did not drop below 89% on room air,ambulate patient on room air. O2 Sat while ambulating on room air:___% Recovery O2 Sat while ambulating on ___LPM:___% No further documentation is necessary. If patient does not drop below 89% while ambulating, he/she does not qualify for home O2.
[2019-07-29] MEDS ORDERED: ondansetron 4mg rapidly disintigrating tab PO PRN (14:50)
--- NOTE | 2019-07-29 16:50 | NUR ---
Called Dr. Colin to notify her of the patient's chest x-ray report. Orders given for one-time dose of Lasix 40 mg IVP.
[2019-07-29] MEDS ORDERED: furosemide 40mg/4ml inj IV ONE (17:05)
--- NOTE | 2019-07-29 17:05 | NUR ---
Patient is refusing accuchecks.
--- NOTE | 2019-07-29 18:20 | NUR ---
Problems reprioritized. Patient report given, questions answered & plan of care reviewed with STEFF Sood.
--- NOTE | 2019-07-29 18:21 | NUR ---
Patient in room PCU 3023Z. I have received report from STEFF BROTHERS and had the opportunity to ask questions and assume patient care. PATIENT SITTING UP AT BEDSIDE FOR REPORT. PATIENT HAS 3L NC ON AND SALINE LOCKED AT THIS TIME. PATIENT IS STABLE AND WILL CONTINUE TO MONITOR CLOSELY.
[2019-07-29] MEDS: insulin glargine (Lantus) pen - multi-dose SQ SCH (21:00)
[2019-07-30 03:00] VITALS: BP 147/50
[2019-07-30 06:17] LABS: ALANINE AMINOTRANSFERASE 16 U/L (12-78); ALBUMIN 2.6 G/DL (3.4-5.0); ALKALINE PHOSPHATASE 49 IU/L (46-116); ANION GAP 5 (8-16); ASPARTATE AMINO TRANSFERASE 20 U/L (10-37); BILIRUBIN,TOTAL 0.8 MG/DL (0.1-1.0); BLOOD UREA NITROGEN 12 MG/DL (7-18); BUN/CREATININE RATIO 14.5 (5.4-32.0); CALCIUM 7.4 MG/DL (8.5-10.1); CHLORIDE 110 MMOL/L (99-107); CREATININE 0.83 MG/DL (0.60-1.10); GLUCOSE 94 MG/DL (70-104); MAGNESIUM 1.7 MG/DL (1.5-2.4); POTASSIUM 3.3 MMOL/L (3.5-5.1); SODIUM 146 MMOL/L (135-145); TOTAL CARBON DIOXIDE 31.3 MMOL/L (24-32); TOTAL PROTEIN 5.2 G/DL (6.4-8.2); eGFR 89 ML/MIN
--- NOTE | 2019-07-30 06:27 | NUR ---
Problems reprioritized. Patient report given, questions answered & plan of care reviewed with STEFF RUFFIN.
--- NOTE | 2019-07-30 06:30 | NUR ---
Patient in room PCU 3025. I have received report from STEFF Sood and had the opportunity to ask questions and assume patient care.
[2019-07-30] MEDS: furosemide 40mg tablet PO SCH (07:30)
[2019-07-30] MEDS: carvedilol 6.25mg tablet PO SCH (07:30)
[2019-07-30] MEDS: atorvastatin 20mg tablet PO SCH (07:30)
[2019-07-30] MEDS: multivitamins, therapeutics tablet PO SCH (07:30)
[2019-07-30] MEDS: lisinopril 2.5mg tablet PO SCH (07:31)
[2019-07-30] MEDS: ascorbic acid 500mg tablet PO SCH (07:31)
[2019-07-30] MEDS: amiodarone 200mg tablet PO SCH (07:31)
[2019-07-30 11:00] VITALS: BP 131/31
[2019-07-30] MEDS ORDERED: IPRA3AMP9 NEB (12:51)
--- NOTE | 2019-07-30 13:30 | NUR ---
O2 Sat at rest on room air:94___% If below 89%: Recovery O2 Sat at rest on ___LPM:___%:___% via (mask/nasal cannula, etc..) No further documentation is necessary. If O2 Sat did not drop below 89% on room air,ambulate patient on room air. O2 Sat while ambulating on room air:__90_% Recovery O2 Sat while ambulating on ___LPM:___% No further documentation is necessary. If patient does not drop below 89% while ambulating, he/she does not qualify for home O2.
--- NOTE | 2019-07-30 14:28 | NUR ---
patient being discharged post illiac stent. Dr Nguyen called, no further anticoagulant needed; patient is on asa 81 mg/day.
--- NOTE | 2019-08-01 09:48 | NUR ---
Case Management DC follow up: LMVM post DC status, questions, concerns
== END 2019-07-30 14:20 | disposition home or self-care (01) | DRG 253 ==
LOC: ER 16:24 → ED HOLD 20:26 → PCU 3S 21:27
PROVIDERS: ADMIT Family Medicine; ATTEND Internal Medicine
PROC: 04HC3DZ Insertion of Intraluminal Device into Right Common Iliac Artery, Percutaneous Approach (ICD-10-PCS; principal; 2019-07-29)
PROC: B41J1ZZ Fluoroscopy of Other Lower Arteries using Low Osmolar Contrast (ICD-10-PCS; 2019-07-29)
PROC: B51V1ZA Fluoroscopy of Other Veins using Low Osmolar Contrast, Guidance (ICD-10-PCS; 2019-07-29)
DX: I74.3 Embolism and thrombosis of arteries of the lower extremities (principal); I48.20 Chronic atrial fibrillation, unspecified; E11.51 Type 2 diabetes mellitus with diabetic peripheral angiopathy without gangrene; E78.5 Hyperlipidemia, unspecified; F17.210 Nicotine dependence, cigarettes, uncomplicated; I70.8 Atherosclerosis of other arteries; I25.10 Atherosclerotic heart disease of native coronary artery without angina pectoris; Z90.49 Acquired absence of other specified parts of digestive tract; Z95.1 Presence of aortocoronary bypass graft; Z88.0 Allergy status to penicillin; Z95.0 Presence of cardiac pacemaker; Z82.49 Family history of ischemic heart disease and other diseases of the circulatory system
CPT/HCPCS: 36005; 36415; 37221; 71045; 75822; 80053; 80061; 82948; 83036; 83735; 83880; 84439; 84443; 85025; 85610; 85730; 87081; 93306; 94760; 96374; 96376; 99152; 99153; 99285; A6213; C1725; C1760; C1769; C1876; C1894; G0378; J1644; J1815; J1940; J2250; J3010; J7030; Q9967

== ENCOUNTER → 2019-07-26 | Outpatient (CLI) | payer MEDICARE ==
[~2019-07-26] MED LIST changes: +AMIO200T61 PO; +ASCO500C15 PO; +ASPI-1130 PO; +CARV6.253 PO; +FURO40TA4 PO; +LISI2.5T2 PO; +MULT-1085 PO; +ROSU40TA22 PO; +ZOLP5TAB8 PO; +iohexol 350 MG/ML 50ML vial IV ONE; +iohexol 350MG/ML 100ml bottle IV ONE
== END | disposition home or self-care (01) ==
LOC: 64 CT 08:49
PROVIDERS: ATTEND Nurse Practitioner
DX: I73.9 Peripheral vascular disease, unspecified (principal); I71.4 Abdominal aortic aneurysm, without rupture; I70.8 Atherosclerosis of other arteries
CPT/HCPCS: 75635; Q9967

== ENCOUNTER 2019-08-01 09:15 | Day surgery (SDC) | payer MEDICARE ==
[~2019-08-01 09:15] MED LIST changes: +AMIO200T61 PO; +ASCO500C15 PO; +ASPI-1130 PO; -ASPI81TA96 PO; -CARV-50 PO; +CARV6.253 PO; -CLOP75TA33 PO; -DET2T PO; +FURO40TA4 PO; +IPRA3AMP9 NEB; +LISI2.5T2 PO; -LISI40TA4 PO; +MULT-1085 PO; +ROSU40TA22 PO; -ROSU5TAB PO; +ZOLP5TAB8 PO
[2019-08-01] MEDS ORDERED: LIDOcaine 2% 5ml jelly ONE (09:32)
== END 2019-08-01 10:07 | disposition home or self-care (01) ==
LOC: WOUND CARE 09:15
PROVIDERS: ATTEND Nurse Practitioner
DX: I70.235 Atherosclerosis of native arteries of right leg with ulceration of other part of foot (principal); L97.511 Non-pressure chronic ulcer of other part of right foot limited to breakdown of skin; S81.801A Unspecified open wound, right lower leg, initial encounter; S91.101D Unspecified open wound of right great toe without damage to nail, subsequent encounter; I10 Essential (primary) hypertension; E78.5 Hyperlipidemia, unspecified; I25.10 Atherosclerotic heart disease of native coronary artery without angina pectoris; F17.200 Nicotine dependence, unspecified, uncomplicated; Z95.1 Presence of aortocoronary bypass graft; X58.XXXD Exposure to other specified factors, subsequent encounter; X58.XXXA Exposure to other specified factors, initial encounter; Y93.89 Activity, other specified; Y92.89 Other specified places as the place of occurrence of the external cause; Y99.8 Other external cause status
CPT/HCPCS: G0463

== ENCOUNTER 2019-08-06 08:35 | Day surgery (SDC) | payer MEDICARE ==
[2019-08-06] MEDS ORDERED: LIDOcaine 2% 5ml jelly ONE (08:56)
== END 2019-08-06 09:17 | disposition home or self-care (01) ==
LOC: WOUND CARE 08:35
PROVIDERS: ATTEND Nurse Practitioner Family
DX: E11.621 Type 2 diabetes mellitus with foot ulcer (principal); I70.235 Atherosclerosis of native arteries of right leg with ulceration of other part of foot; L97.511 Non-pressure chronic ulcer of other part of right foot limited to breakdown of skin; L97.811 Non-pressure chronic ulcer of other part of right lower leg limited to breakdown of skin; S81.801D Unspecified open wound, right lower leg, subsequent encounter; S91.101D Unspecified open wound of right great toe without damage to nail, subsequent encounter; E11.51 Type 2 diabetes mellitus with diabetic peripheral angiopathy without gangrene; I10 Essential (primary) hypertension; E78.5 Hyperlipidemia, unspecified; I48.20 Chronic atrial fibrillation, unspecified; I25.10 Atherosclerotic heart disease of native coronary artery without angina pectoris; F17.210 Nicotine dependence, cigarettes, uncomplicated; Z95.1 Presence of aortocoronary bypass graft; Z95.0 Presence of cardiac pacemaker; X58.XXXD Exposure to other specified factors, subsequent encounter
CPT/HCPCS: 97597

== ENCOUNTER 2019-08-12 08:20 | Outpatient (CLI) | payer MEDICARE | END 2019-08-12 09:50 | disposition home or self-care (01) | LOC: WOUND CARE 08:20 → EDSTATUS 08:40 → WOUND CARE 09:50 | PROVIDERS: ATTEND Nurse Practitioner Family | DX: E11.621 Type 2 diabetes mellitus with foot ulcer (principal); I70.235 Atherosclerosis of native arteries of right leg with ulceration of other part of foot; L97.511 Non-pressure chronic ulcer of other part of right foot limited to breakdown of skin; L97.811 Non-pressure chronic ulcer of other part of right lower leg limited to breakdown of skin; S81.801D Unspecified open wound, right lower leg, subsequent encounter; E11.51 Type 2 diabetes mellitus with diabetic peripheral angiopathy without gangrene; I10 Essential (primary) hypertension; E78.5 Hyperlipidemia, unspecified; I48.20 Chronic atrial fibrillation, unspecified; I25.10 Atherosclerotic heart disease of native coronary artery without angina pectoris; F17.210 Nicotine dependence, cigarettes, uncomplicated; Z95.1 Presence of aortocoronary bypass graft; Z95.0 Presence of cardiac pacemaker; X58.XXXD Exposure to other specified factors, subsequent encounter | CPT/HCPCS: G0463 ==

== ENCOUNTER 2019-08-19 09:10 | Day surgery (SDC) | payer MEDICARE | END 2019-08-19 10:15 | disposition home or self-care (01) | LOC: WOUND CARE 09:10 | PROVIDERS: ATTEND Nurse Practitioner | DX: E11.621 Type 2 diabetes mellitus with foot ulcer (principal); I70.235 Atherosclerosis of native arteries of right leg with ulceration of other part of foot; L97.511 Non-pressure chronic ulcer of other part of right foot limited to breakdown of skin; L97.811 Non-pressure chronic ulcer of other part of right lower leg limited to breakdown of skin; S81.801D Unspecified open wound, right lower leg, subsequent encounter; E11.51 Type 2 diabetes mellitus with diabetic peripheral angiopathy without gangrene; I10 Essential (primary) hypertension; E78.5 Hyperlipidemia, unspecified; I48.20 Chronic atrial fibrillation, unspecified; I25.10 Atherosclerotic heart disease of native coronary artery without angina pectoris; F17.210 Nicotine dependence, cigarettes, uncomplicated; Z95.1 Presence of aortocoronary bypass graft; Z95.0 Presence of cardiac pacemaker; X58.XXXD Exposure to other specified factors, subsequent encounter | CPT/HCPCS: 93922; 97597 ==

== ENCOUNTER 2019-08-26 09:12 | Outpatient (CLI) | payer MEDICARE ==
[2019-08-26 14:51] LABS: ALBUMIN 3.4 G/DL (3.4-5.0); ANION GAP 6 (8-16); BLOOD UREA NITROGEN 16 MG/DL (7-18); BUN/CREATININE RATIO 17.6 (5.4-32.0); CHLORIDE 107 MMOL/L (99-107); CREATININE 0.91 MG/DL (0.60-1.10); GLUCOSE 101 MG/DL (70-104); POTASSIUM 3.9 MMOL/L (3.5-5.1); SODIUM 145 MMOL/L (135-145); TOTAL CARBON DIOXIDE 31.8 MMOL/L (24-32); eGFR 80 ML/MIN
== END 2019-08-26 12:49 | disposition home or self-care (01) ==
LOC: WOUND CARE 09:12 → EDSTATUS 09:20 → WOUND CARE 12:49
PROVIDERS: ATTEND Nurse Practitioner Family
DX: E11.621 Type 2 diabetes mellitus with foot ulcer (principal); I70.235 Atherosclerosis of native arteries of right leg with ulceration of other part of foot; L97.511 Non-pressure chronic ulcer of other part of right foot limited to breakdown of skin; L97.811 Non-pressure chronic ulcer of other part of right lower leg limited to breakdown of skin; S81.801D Unspecified open wound, right lower leg, subsequent encounter; E11.51 Type 2 diabetes mellitus with diabetic peripheral angiopathy without gangrene; I10 Essential (primary) hypertension; E78.5 Hyperlipidemia, unspecified; I48.20 Chronic atrial fibrillation, unspecified; I25.10 Atherosclerotic heart disease of native coronary artery without angina pectoris; F17.210 Nicotine dependence, cigarettes, uncomplicated; Z95.1 Presence of aortocoronary bypass graft; Z95.0 Presence of cardiac pacemaker; X58.XXXD Exposure to other specified factors, subsequent encounter
CPT/HCPCS: 36415; 80048; G0463

== ENCOUNTER 2019-08-27 12:05 | Outpatient (CLI) | payer MEDICARE ==
[~2019-08-27 12:05] MED LIST changes: +iohexol 350 MG/ML 50ML vial IV ONE; +iohexol 350MG/ML 100ml bottle IV ONE
== END 2019-08-27 23:59 | disposition home or self-care (01) ==
LOC: 64 CT 12:05
PROVIDERS: ATTEND Nurse Practitioner Family
DX: I70.8 Atherosclerosis of other arteries (principal); I70.208 Unspecified atherosclerosis of native arteries of extremities, other extremity; I71.4 Abdominal aortic aneurysm, without rupture; K57.30 Diverticulosis of large intestine without perforation or abscess without bleeding
CPT/HCPCS: 73706; Q9967

== ENCOUNTER 2019-09-02 09:25 | Day surgery (SDC) | payer MEDICARE ==
[~2019-09-02 09:25] MED LIST changes: -iohexol 350 MG/ML 50ML vial IV ONE; -iohexol 350MG/ML 100ml bottle IV ONE
[2019-09-02] MEDS ORDERED: LIDOcaine 2% 5ml jelly ONE (09:50)
== END 2019-09-02 10:43 | disposition home or self-care (01) ==
LOC: WOUND CARE 09:25
PROVIDERS: ATTEND Nurse Practitioner
DX: E11.621 Type 2 diabetes mellitus with foot ulcer (principal); I70.235 Atherosclerosis of native arteries of right leg with ulceration of other part of foot; L97.511 Non-pressure chronic ulcer of other part of right foot limited to breakdown of skin; L97.811 Non-pressure chronic ulcer of other part of right lower leg limited to breakdown of skin; S81.801D Unspecified open wound, right lower leg, subsequent encounter; E11.51 Type 2 diabetes mellitus with diabetic peripheral angiopathy without gangrene; I10 Essential (primary) hypertension; E78.5 Hyperlipidemia, unspecified; I48.20 Chronic atrial fibrillation, unspecified; I25.10 Atherosclerotic heart disease of native coronary artery without angina pectoris; F17.210 Nicotine dependence, cigarettes, uncomplicated; Z95.1 Presence of aortocoronary bypass graft; Z95.0 Presence of cardiac pacemaker; X58.XXXD Exposure to other specified factors, subsequent encounter
CPT/HCPCS: 97597

== ENCOUNTER 2019-09-10 08:25 | Day surgery (SDC) | payer MEDICARE | END 2019-09-10 10:05 | disposition home or self-care (01) | LOC: WOUND CARE 08:25 | PROVIDERS: ATTEND Nurse Practitioner | DX: E11.621 Type 2 diabetes mellitus with foot ulcer (principal); I70.235 Atherosclerosis of native arteries of right leg with ulceration of other part of foot; L97.511 Non-pressure chronic ulcer of other part of right foot limited to breakdown of skin; L97.811 Non-pressure chronic ulcer of other part of right lower leg limited to breakdown of skin; E11.51 Type 2 diabetes mellitus with diabetic peripheral angiopathy without gangrene; I10 Essential (primary) hypertension; E78.5 Hyperlipidemia, unspecified; I48.20 Chronic atrial fibrillation, unspecified; I25.10 Atherosclerotic heart disease of native coronary artery without angina pectoris; F17.210 Nicotine dependence, cigarettes, uncomplicated; Z95.1 Presence of aortocoronary bypass graft; Z95.0 Presence of cardiac pacemaker | CPT/HCPCS: 87070; 87075; 87102; G0463; 87077; 87186 ==

== ENCOUNTER 2019-09-16 08:06 | Outpatient (CLI) | payer MEDICARE ==
[2019-09-16] MEDS ORDERED: LIDOcaine 2% 5ml jelly ONE (08:24)
== END 2019-09-16 09:40 | disposition home or self-care (01) ==
LOC: WOUND CARE 08:06 → EDSTATUS 08:20 → WOUND CARE 09:40
PROVIDERS: ATTEND Nurse Practitioner Family
DX: E11.621 Type 2 diabetes mellitus with foot ulcer (principal); I70.235 Atherosclerosis of native arteries of right leg with ulceration of other part of foot; L97.511 Non-pressure chronic ulcer of other part of right foot limited to breakdown of skin; L97.811 Non-pressure chronic ulcer of other part of right lower leg limited to breakdown of skin; R21 Rash and other nonspecific skin eruption; E11.51 Type 2 diabetes mellitus with diabetic peripheral angiopathy without gangrene; I10 Essential (primary) hypertension; E78.5 Hyperlipidemia, unspecified; I48.20 Chronic atrial fibrillation, unspecified; I25.10 Atherosclerotic heart disease of native coronary artery without angina pectoris; F17.210 Nicotine dependence, cigarettes, uncomplicated; Z95.1 Presence of aortocoronary bypass graft; Z95.0 Presence of cardiac pacemaker; Z90.49 Acquired absence of other specified parts of digestive tract; Z79.01 Long term (current) use of anticoagulants
CPT/HCPCS: G0463

== ENCOUNTER 2019-09-23 08:20 | Outpatient (CLI) | payer MEDICARE ==
[2019-09-23] MEDS ORDERED: LIDOcaine 2% 5ml jelly ONE (09:31)
== END 2019-09-23 10:20 | disposition home or self-care (01) ==
LOC: EDSTATUS 08:20 → WOUND CARE 08:20
PROVIDERS: ATTEND Nurse Practitioner
DX: E11.621 Type 2 diabetes mellitus with foot ulcer (principal); I70.235 Atherosclerosis of native arteries of right leg with ulceration of other part of foot; L97.511 Non-pressure chronic ulcer of other part of right foot limited to breakdown of skin; L97.811 Non-pressure chronic ulcer of other part of right lower leg limited to breakdown of skin; R21 Rash and other nonspecific skin eruption; E11.51 Type 2 diabetes mellitus with diabetic peripheral angiopathy without gangrene; I10 Essential (primary) hypertension; E78.5 Hyperlipidemia, unspecified; I48.20 Chronic atrial fibrillation, unspecified; I25.10 Atherosclerotic heart disease of native coronary artery without angina pectoris; F17.210 Nicotine dependence, cigarettes, uncomplicated; Z95.1 Presence of aortocoronary bypass graft; Z95.0 Presence of cardiac pacemaker; Z90.49 Acquired absence of other specified parts of digestive tract; Z79.01 Long term (current) use of anticoagulants
CPT/HCPCS: 97597

== ENCOUNTER 2019-09-30 08:28 | Day surgery (SDC) | payer MEDICARE | END 2019-09-30 09:17 | disposition home or self-care (01) | LOC: WOUND CARE 08:28 | PROVIDERS: ATTEND Nurse Practitioner | DX: E11.621 Type 2 diabetes mellitus with foot ulcer (principal); I70.235 Atherosclerosis of native arteries of right leg with ulceration of other part of foot; L97.511 Non-pressure chronic ulcer of other part of right foot limited to breakdown of skin; L97.811 Non-pressure chronic ulcer of other part of right lower leg limited to breakdown of skin; R21 Rash and other nonspecific skin eruption; E11.51 Type 2 diabetes mellitus with diabetic peripheral angiopathy without gangrene; I10 Essential (primary) hypertension; E78.5 Hyperlipidemia, unspecified; I48.20 Chronic atrial fibrillation, unspecified; I25.10 Atherosclerotic heart disease of native coronary artery without angina pectoris; F17.210 Nicotine dependence, cigarettes, uncomplicated; Z95.1 Presence of aortocoronary bypass graft; Z95.0 Presence of cardiac pacemaker; Z90.49 Acquired absence of other specified parts of digestive tract; Z79.01 Long term (current) use of anticoagulants | CPT/HCPCS: 97597 ==

== ENCOUNTER 2019-10-07 08:30 | Outpatient (CLI) | payer MEDICARE | END 2019-10-07 09:53 | disposition home or self-care (01) | LOC: WOUND CARE 08:30 | PROVIDERS: ATTEND Nurse Practitioner Family | DX: E11.621 Type 2 diabetes mellitus with foot ulcer (principal); I70.235 Atherosclerosis of native arteries of right leg with ulceration of other part of foot; L97.511 Non-pressure chronic ulcer of other part of right foot limited to breakdown of skin; L97.811 Non-pressure chronic ulcer of other part of right lower leg limited to breakdown of skin; R21 Rash and other nonspecific skin eruption; E11.51 Type 2 diabetes mellitus with diabetic peripheral angiopathy without gangrene; I10 Essential (primary) hypertension; E78.5 Hyperlipidemia, unspecified; I48.20 Chronic atrial fibrillation, unspecified; I25.10 Atherosclerotic heart disease of native coronary artery without angina pectoris; F17.210 Nicotine dependence, cigarettes, uncomplicated; Z95.1 Presence of aortocoronary bypass graft; Z95.0 Presence of cardiac pacemaker; Z90.49 Acquired absence of other specified parts of digestive tract; Z79.01 Long term (current) use of anticoagulants | CPT/HCPCS: G0463 ==

== ENCOUNTER 2020-02-11 18:39 | Inpatient (IN) | payer MEDICARE ==
[~2020-02-11] VITALS: Ht 185.4 cm; Wt 113.6 kg
[~2020-02-11 18:39] MED LIST changes: -ASCO500C15 PO; +ASCO500C18 PO; -ASPI-1130 PO; +ASPI-1397 PO
--- NOTE | 2020-02-11 19:00 | NUR ---
AFTER TALKING WITH PT , PT IS ONLY ON ASPIRIN, NO BLOOD THINNERS
[2020-02-11 19:36] LABS: ABG BASE EXCESS 1.5 mmol/L (-2.0-2.0); ABG HCO3 27.9 mmol/L (22.0-26.0); ABG PCO2 (T) 49.4 mmHg (35.0-48.0); ABG PO2 (T) 58.2 mmHg (75.0-100.0); FCOHb 3.4 % (0.0-3.9); FMetHb 0.2 % (0.0-1.5); FO2Hb 86.8 % (94-97); TOTAL HEMOGLOBIN 17.6 G/dl (14.0-18.0)
[2020-02-11 19:42] LABS: BASOPHILS # (AUTO) 0.1 X10'3 (0-0.2); BASOPHILS % (AUTO) 0.9 % (0-1); EOSINOPHILS # (AUTO) 0.2 X10'3 (0-0.9); EOSINOPHILS % (AUTO) 1.8 % (0-6); HEMATOCRIT 51.4 % (42.0-52.0); HEMOGLOBIN 17.2 g/dl (14.0-17.9); LYMPHOCYTES # (AUTO) 0.7 X10'3 (1.1-4.8); LYMPHOCYTES % (AUTO) 4.9 % (21-51); MEAN CORPUSCULAR HEMOGLOBIN 31.4 PG (27.0-31.0); MEAN CORPUSCULAR HGB CONC 33.5 g/dL (33.0-36.5); MEAN CORPUSCULAR VOLUME 93.7 FL (78-98); MEAN PLATELET VOLUME 10.6 FL (7.4-10.4); MONOCYTES # (AUTO) 0.7 X10'3 (0-0.9); MONOCYTES % (AUTO) 4.8 % (2-12); NEUTROPHILS # (AUTO) 12.1 X10'3 (1.8-7.7); NEUTROPHILS % (AUTO) 87.6 % (42-75); PLATELET COUNT 114 X10'3 (140-440); RED BLOOD COUNT 5.48 X10'6 (4.70-6.10); WHITE BLOOD COUNT 13.9 X10'3 (4.5-11.0)
[2020-02-11 19:58] LABS: ALANINE AMINOTRANSFERASE 22 U/L (12-78); ALBUMIN 3.5 G/DL (3.4-5.0); ALBUMIN/GLOBULIN RATIO 0.9 (1.1-1.5); ALKALINE PHOSPHATASE 88 IU/L (46-116); ANION GAP 5 (8-16); ASPARTATE AMINO TRANSFERASE 36 U/L (10-37); BLOOD UREA NITROGEN 22 MG/DL (7-18); BUN/CREATININE RATIO 19.6 (5.4-32.0); CALCIUM 9.6 MG/DL (8.5-10.1); CHLORIDE 103 MMOL/L (99-107); CREATININE 1.12 MG/DL (0.60-1.10); GLUCOSE 131 MG/DL (70-104); POTASSIUM 4.1 MMOL/L (3.5-5.1); SODIUM 140 MMOL/L (135-145); TOTAL CARBON DIOXIDE 31.7 MMOL/L (24-32); TOTAL PROTEIN 7.5 G/DL (6.4-8.2); eGFR 63 ML/MIN
[2020-02-11 20:03] LABS: LARGE PLATELETS FEW; PLATELET ESTIMATE DECREASED
[2020-02-11 20:55] LABS: CLARITY,URINE CLEAR (Clear); COLOR,URINE YELLOW (Yellow); GLUCOSE, URINE NEGATIVE (Neg); KETONES,URINE NEGATIVE (Neg); LEUKOCYTE ESTERASE ,URINE NEGATIVE (Neg); NITRITES, URINE NEGATIVE (Neg); OCCULT BLOOD,URINE NEGATIVE (Neg); PROTEIN,URINE 100 mg/dl (Neg); UA COLLECTION TYPE NON-SPECIFIED; UROBILINOGEN,URINE 0.2 E.U/dL (0.2-1.0)
[2020-02-11 21:01] LABS: BACTERIA,URINE 1+ /HPF (Neg); RBC,URINE NONE SEEN /HPF (0-2); SQUAMOUS EPITHELIAL CELL,UR FEW /LPF (FEW); WBC,URINE 0-4 /HPF (0-4)
[2020-02-11] MEDS ORDERED: CARV6.253 PO (21:28)
[2020-02-11] MEDS ORDERED: FURO-150 PO (21:28)
[2020-02-11] MEDS ORDERED: ondansetron/PF 4mg/2ml inj IV PRN (21:35)
[2020-02-11] MEDS ORDERED: magnesium 2GM in 50ml NS 50 ML IV PRN (21:35)
[2020-02-11] MEDS ORDERED: magnesium hydroxide 30ml (MOM) UD suspension PO PRN (21:35)
[2020-02-11] MEDS ORDERED: magnesium 4gm in 100ml NS 100 ML IV PRN (21:35)
[2020-02-11] MEDS ORDERED: magnesium Cl slow-release 64mg tablet PO PRN (21:35)
[2020-02-11] MEDS ORDERED: acetaminophen 325mg tablet PO PRN ×2 (21:35)
[2020-02-11] MEDS ORDERED: mag hydrox/Alum hydrox/simeth 30ml oral suspension PO PRN (21:35)
[2020-02-11] MEDS ORDERED: potassium Cl 20 mEq SR tablet PO PRN ×2 (21:35)
[2020-02-11] MEDS ORDERED: potassium CL 10mEq/100ml bag 100 ML IV PRN ×2 (21:35)
--- NOTE | 2020-02-11 21:37 | NUR ---
DISCUSSED CARE WITH DANIEL. PROVIDED ACCURATE MED REC AND PT HX. STATES THAT SHE HAS BEEN CONCERNED THAT HE HAS BEEN FALLING A LOT MORE RECENTLY AND NOT BREATHING WELL. STATES THAT HE FELL YESTERDAY AND DOESN'T REMEMBER THE WAY THAT HE FEEL. PT C/O LOWER BACK/HIP PAIN, AND LEG PAIN. REPORTS THAT HE HAS BEEN NON COMPLIANT WITH LASIX AT HOME BECAUSE IT'S DIFFICULT TO GETUP AND DOWN AT NIGHT. LEGS ARE RED AND SWOLLEN.
--- NOTE | 2020-02-11 22:34 | NUR ---
sned out covid sent to lab
--- NOTE | 2020-02-11 23:31 | NUR ---
PT NOT WANTING TO BE ADMITTED REFUSING TO TO [facility] BEYGED FR JENSEN
--- NOTE | 2020-02-12 00:13 | NUR ---
[HONED PT TO PICK HIM UP HE HAS AMA DR SOTO CAME TO [facility] ADVISING PT THAT HE NEEDS FURTHER EVALUATION AND OXYGEN . PT STATES HE DOES NOT WANT TO STAY AND THAT HE WEILL LEAVE NO MATTER WHAT HE STATES THAT HE HAS BEEN OFFERED O2 BY HIS PRIMARY AND REFUSES TO USE IT , STATES THAT HE IS FINE NAD WOULD LIKE TO JUST GO HOME . PT STATES THE HE HAS HAD ALL HE CAN TAKE AND IS ABOUT TO LEAVE DR SOTO SIGNESD AMA FORM AND PATIENT ALSO . 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
[2020-02-12 00:16] VITALS: BP 158/66
[2020-02-12] MEDS ORDERED: K and/or MAG REPLACEMENT MC SCH (08:00)
== END 2020-02-12 01:02 | disposition left against medical advice (07) | DRG 189 ==
LOC: ER 18:39 → ED HOLD 21:33
PROVIDERS: ADMIT Family Medicine; ATTEND Family Medicine
DX: J96.21 Acute and chronic respiratory failure with hypoxia (principal); R62.7 Adult failure to thrive; I11.0 Hypertensive heart disease with heart failure; I50.9 Heart failure, unspecified; Z20.828 Contact with and (suspected) exposure to other viral communicable diseases; E11.9 Type 2 diabetes mellitus without complications; Z53.29 Procedure and treatment not carried out because of patient's decision for other reasons; I25.10 Atherosclerotic heart disease of native coronary artery without angina pectoris; Z90.49 Acquired absence of other specified parts of digestive tract; Z79.82 Long term (current) use of aspirin; Z68.33 Body mass index [BMI] 33.0-33.9, adult; Z88.0 Allergy status to penicillin
CPT/HCPCS: 36415; 36600; 70450; 71045; 80053; 81001; 82803; 83605; 85008; 85018; 85025; 87635; 93005; 99285; C9803; G0378